=== PATIENT | female | born 1980 | race Caucasian/White ===

== ENCOUNTER 2018-01-16 10:07 | Emergency (ER) | payer MEDICAID ==
[~2018-01-16] VITALS: Ht 170.2 cm; Wt 79.5 kg
[~2018-01-16 10:07] MED LIST: ANAP550T PO; CEPH500 PO; DOK100TA PO; ORTH0.35 PO; PREN0.01 PO
[2018-01-16 10:13] VITALS: BP 124/78; PULSE 99; RESP 18; TEMP 97.9; O2SAT 100
[2018-01-16] MEDS ORDERED: BACT800T5 PO ×2 (10:25→10:29)
--- NOTE | 2018-01-16 10:32 | PD ---
HPI Chief Complaint: Cold / Flu Symptoms Time Seen by Provider: 10:17 Travel History International Travel<30 days: No Contact w/Intl Traveler<30days: No Traveled to known affect area: No History of Present Illness HPI This patient complains of a painful area in the back of her left scalp. Duration 3 days. Severity is moderate. No drainage or fever. She is also complaining of some runny nose cough and congestion. PFSH Past Medical History ?: Not LMP: 01/02/18 : 7 Para: 5 Miscarriage: 1 Social History Alcohol Use: No Tobacco Use: No Substance Use: No Allergies-Medications (Allergen,Severity, Reaction): Coded Allergies: No Known Allergies (Verified , 08/20/14) Reported Meds & Prescriptions Reported Meds & Active Scripts Active Bactrim DS (Sulfamethoxazole-Trimethoprim) 800-160 Mg Tab 1 Tab PO BID Dok 100 mg (Docusate Sodium) 100 Mg Tab 100 Mg PO BID Ortho Micronor (Norethindrone) Tab 1 Tab PO DAILY Anaprox Ds (Naproxen Sodium) 550 Mg Tab 550 Mg PO BID Keflex 500 mg Cap (Cephalexin Monohydrate) 500 Mg Cap 500 Mg PO Q8 PRN 5 Days Reported Vit ( Plus) (Prenat Multivit/Bartholomew/Iron/Folic Ac) Tab 1 Tab PO DAILY Review of Systems HENT: Positive: Congestion Respiratory: Positive: Cough Physical Exam Narrative GENERAL: Well-nourished, well-developed patient in no apparent distress. SKIN: Focused skin assessment reveals no rash and nodules. Skin is Warm and dry. HEAD: Atraumatic. Normocephalic. 1 cm by 1 cm tender area on the posterior left scalp. This is the source of her discomfort. There is no active drainage or fluctuance. EYES: Pupils equal and round. No scleral icterus. No injection or drainage. ENT: No nasal bleeding or discharge. Mucous membranes pink and moist. NECK: Trachea midline. No JVD. CARDIOVASCULAR: Regular rate and rhythm. No murmur appreciated. RESPIRATORY: No accessory muscle use. Clear to auscultation. Breath sounds equal bilaterally. GASTROINTESTINAL: Abdomen soft, non-tender, nondistended. Hepatic and splenic margins not palpable. MUSCULOSKELETAL: No obvious deformities. No clubbing. No cyanosis. No edema. NEUROLOGICAL: Awake and alert. No obvious cranial nerve deficits. Motor grossly within normal limits. Normal speech. PSYCHIATRIC: Appropriate mood and affect; insight and judgment normal. Patient has a 1 cm Data Data Last Documented VS Vital Signs Date Time Temp Pulse Resp B/P (MAP) Pulse Ox O2 Delivery O2 Flow Rate FiO2 01/16/18 10:13 97.9 99 18 124/78 (93) 100 MDM Medical Decision Making Medical Screen Exam Complete: Yes Emergency Medical Condition: Yes Medical Record Reviewed: Yes Differential Diagnosis Boil, abscess,cellulitis Narrative Course I have reviewed the patient's electronic medical record. Patient has an infected lesion of her scalp. There is no indication for drainage. bactrim prescribed Diagnosis Primary Impression: Infected lesion of skin Additional Impression: Viral URI with cough Additional Instructions: The patient was advised to follow up with their physician and return if they worsen. Med/Other Pt SpecificInfo: Prescription(s) given Scripts Sulfamethoxazole-Trimethoprim (Bactrim DS) 800-160 Mg Tab 1 TAB PO BID for Infection, #14 TAB 0 Refills Prov: Gareth Nicole MD 01/16/18 Disposition: DISCHARGE HOME Condition: Stable Gareth Nicole MD Jan 16, 2018 10:32
== END 2018-01-16 11:23 | disposition home or self-care (01) ==
LOC: NEPD 10:07
DX: L98.9 Disorder of the skin and subcutaneous tissue, unspecified (principal); J06.9 Acute upper respiratory infection, unspecified; Z79.899 Other long term (current) drug therapy
CPT/HCPCS: 99283